=== PATIENT | female | born 1985 ===

== ENCOUNTER 2019-08-22 15:32 | Emergency (ER) | payer OTHER ==
[~2019-08-22] VITALS: Ht 165.1 cm; Wt 127.5 kg
--- NOTE | 2019-08-22 16:02 | NUR ---
PT TO ROOM FROM LOBBY AT THIS TIME.
[2019-08-22] MEDS ORDERED: LORA10TA62 PO (16:13)
[2019-08-22] MEDS ORDERED: PHEN35TA PO (16:13)
[2019-08-22] MEDS ORDERED: POTASSIUM PO (16:13)
--- NOTE | 2019-08-22 16:14 | NUR ---
ASSUMED CARE OF PT AT THIS TIME FROM LOBBY. AMBULATORY TO ROOM WITH STEADY GAIT. 34 Y/O F PRESENTS STATING "WENT TO FRIEND'S HOUSE ON SUNDAY AROUND 4PM, THERE WITH 22 YEAR OLD HAYDE, GOING TO HAVE A FEW DRINKS AND GO HOME, HAD A FEW DRINKS 3-4 BEERS AND A SHOT, CAN DRINK WAY MORE THAN THAT NORMALLY, LITERALLY BLACKED OUT, WOKE UP IN BEDROOM ON FLOOR PUKING, MY NEICE WAS IN SAME ROOM WITH NO PANTS ON, NEITHER OF US KNOW HOW WE GOT IN THIS ROOM, I GOT US OUT OF THERE AND BACK TO MY HOUSE, NOT SURE IF ANYTHING HAPPENED, IF I WAS GIVEN DRUGS OR SOMETHING AND I WANT TO BE TESTED FOR STD'S." DENIES VAGINAL BLEEDING, DISCHARGE, ITCHING OR ODOR. LMP 08/02/19. CONT PULSE OX, BP MONITORS APPLIED. VSS. CALL LIGHT IN REACH. FALL PRECAUTIONS IN PLACE. DR. WILHELM AT BEDSIDE FOR EVALUATION. A&OX4.
--- NOTE | 2019-08-22 16:15 | NUR ---
PT REPORTS TO MD "WOKE UP AND MY CLOTHES WERE STILL ON ALTHOUGH MY NEICE'S PANTS WERE, BUT I JUST FEEL LIKE SOMETHING HAPPENED."
--- NOTE | 2019-08-22 16:26 | NUR ---
DR. WILHELM REMAINS AT BEDSIDE DISCUSSING POC WITH PT. PT REFUSES TO FILE POLICE REPORT AND HAVE [facility] CALLED, "I WOULD JUST RATHER BE TREATED AND HAVE THIS OVER WITH, I DON'T WANT ANY EXAM DONE OR TO FILE ANY REPORT, I JUST WANT THE ANTIBIOTICS AND TEST FOR STD'S."
[2019-08-22] MEDS ORDERED: CEFTRIAXONE 250 MG IM ONE (16:30)
[2019-08-22] MEDS ORDERED: AZITHROMYCIN 500 MG TABLET PO ONE (16:30)
[2019-08-22] MEDS ORDERED: CEFTRIAXONE 250 MG ONE (16:35)
[2019-08-22] MEDS ORDERED: AZITHROMYCIN 500 MG TABLET ONE (16:35)
--- NOTE | 2019-08-22 16:35 | NUR ---
CLEAN CATCH UA COLLECTED AND WALKED TO LAB
[2019-08-22 16:36] LABS: HCG UR SG 1.028 (1.003-1.030)
--- NOTE | 2019-08-22 16:49 | NUR ---
PT MEDICATED PER REQUEST IN EMAR AND MD ORDERS. CALL LIGHT IN REACH. FALL PRECAUTIONS IN PLACE. VSS. LAB AT BEDSIDE
[2019-08-22 16:50] LABS: AMPHETAMINE SCREEN, URINE Negative (Negative); BARBITURATE SCREEN, URINE Negative (Negative); BENZODIAZEPINE SCREEN, URINE Negative (Negative); CANNABINOID SCREEN, URINE Negative (Negative); COCAINE SCREEN, URINE Negative (Negative); METHADONE SCREEN, URINE Negative (Negative); OPIATE SCREEN, URINE Negative (Negative)
--- NOTE | 2019-08-22 17:09 | NUR ---
DR. WILHELM AT BEDSIDE FOR RECHECK. AWAITING CHART AND DISCHARGE PAPERS
[2019-08-22 17:13] VITALS: BP 124/72
== END 2019-08-22 17:26 | disposition home or self-care (01) ==
LOC: ED 16:00
DX: T76.21XA Adult sexual abuse, suspected, initial encounter (principal); E11.9 Type 2 diabetes mellitus without complications; F41.9 Anxiety disorder, unspecified; R55 Syncope and collapse
CPT/HCPCS: 36415; 80307; 81025; 87806; 96372; 99283; J0696; G0475